=== PATIENT | female | born 1965 | race Caucasian/White ===

== ENCOUNTER 2022-12-18 20:06 | Inpatient (IN) | payer OTHER ==
[2022-12-18 20:37] VITALS: BMI 23.3
[2022-12-18] MEDS ORDERED: IBUPROFEN 400 MG TABLET (FP) PO PRN (21:10)
[2022-12-18] MEDS ORDERED: ACETAMINOPHEN 325 MG TABLET (FP) PO PRN (21:10)
[2022-12-18] MEDS ORDERED: NALOXONE HCL (KLOXXADO) 8 MG SPRAY NS PRN (21:10)
[2022-12-18] MEDS ORDERED: DICYCLOMINE HCL 10 MG CAPSULE PO PRN (21:10)
[2022-12-18] MEDS ORDERED: methaDONE HCL 10 MG TABLET (FOR DETOX USE ONLY) PO ONE (21:10)
[2022-12-18] MEDS ORDERED: guaiFENesin 600 MG TABLET.ER (FP) PO PRN (21:10)
[2022-12-18] MEDS ORDERED: ONDANSETRON *ODT* 4 MG TABLET SL PRN (21:10)
[2022-12-18] MEDS ORDERED: MAG HYDROX/AL HYDROX/SIMETH 30 ML UNIT-DOSE CUP PO PRN (21:10)
[2022-12-18] MEDS ORDERED: BENZONATATE 200 MG CAPSULE PO PRN (21:10)
[2022-12-18] MEDS ORDERED: cloNIDine HCL 0.1 MG TABLET PO PRN (21:10)
[2022-12-18] MEDS ORDERED: NALOXONE HCL 0.4 MG/ML VIAL IM PRN (21:10)
[2022-12-18] MEDS ORDERED: MAGNESIUM HYDROX 2400MG/30ML ORAL SUSPENSION 30 ML CUP PO PRN (21:10)
[2022-12-18] MEDS ORDERED: POLYETHYLENE GLYCOL (HEALTHYLAX) 3350 17 GM PACKET PO PRN (21:10)
[2022-12-18] MEDS ORDERED: LOPERAMIDE HCL 2 MG CAPSULE PO PRN (21:10)
[2022-12-18] MEDS ORDERED: BENZOCAINE/MENTHOL (CHLORASEPTIC ) LOZENGE MM PRN (21:10)
[2022-12-18] MEDS ORDERED: BISMUTH SUBSALICYLATE 524 MG/30 ML PO PRN (21:10)
[2022-12-18] MEDS ORDERED: MELATONIN 5 MG TABLETS PO SCH (22:00)
[2022-12-18] MEDS: THIAMINE HCL 100 MG TABLET (FP) PO SCH (22:15)
[2022-12-19] MEDS: PRENATAL VITAMINS W/ FOLIC ACID TABLET (FP) PO SCH (10:13)
[2022-12-19] MEDS: METHOCARBAMOL 500 MG TABLET PO PRN ×2 (10:13→22:21)
[2022-12-19 11:56] LABS: HEMATOCRIT 38.3 % (32.4-45.2); HEMOGLOBIN 12.8 GM/dL (10.7-15.3); MCHC 33.5 g/dl (32.0-36.0); MEAN CELL VOLUME 86.7 fl (80-96); MEAN PLT VOLUME 8.8 fl (7.5-11.1); PLATELET COUNT 249 10^3/uL (134-434); RBC 4.41 M/mm3 (3.60-5.2); WHITE BLOOD COUNT 5.4 K/mm3 (4.0-10.0)
[2022-12-19 12:11] LABS: POTASSIUM 4.8 mmol/L (3.5-5.1)
[2022-12-19 12:12] LABS: CALCIUM 9.6 mg/dL (8.5-10.1)
[2022-12-19 12:13] LABS: ALBUMIN 3.8 g/dl (3.4-5.0); BLOOD UREA NITROGEN 10.7 mg/dL (7-18)
[2022-12-19 12:16] LABS: CREATININE 0.9 mg/dL (0.55-1.3)
[2022-12-19 12:18] LABS: BILIRUBIN,TOTAL 0.5 mg/dL (0.2-1)
[2022-12-19] MEDS: THIAMINE HCL 100 MG TABLET (FP) PO SCH (22:20)
[2022-12-19] MEDS: MELATONIN 5 MG TABLETS PO SCH (22:20)
[2022-12-20] MEDS: METHOCARBAMOL 500 MG TABLET PO PRN ×2 (06:13→21:49)
[2022-12-20] MEDS ORDERED: methaDONE HCL 10 MG TABLET (FOR DETOX USE ONLY) PO ONE (10:00)
[2022-12-20] MEDS: PRENATAL VITAMINS W/ FOLIC ACID TABLET (FP) PO SCH (10:09)
[2022-12-20] MEDS: IBUPROFEN 600 MG TABLET (FP) PO PRN (14:19)
[2022-12-20] MEDS: hydrOXYzine PAMOATE 25 MG CAPSULE (FP) PO PRN (21:49)
[2022-12-20] MEDS: MELATONIN 5 MG TABLETS PO SCH (21:49)
[2022-12-20] MEDS: THIAMINE HCL 100 MG TABLET (FP) PO SCH (21:50)
[2022-12-21] MEDS: PRENATAL VITAMINS W/ FOLIC ACID TABLET (FP) PO SCH (09:44)
[2022-12-21] MEDS: METHOCARBAMOL 500 MG TABLET PO PRN ×2 (09:48→21:06)
[2022-12-21] MEDS ORDERED: METHYL SALICYLATE/MENTHOL OINT 30 GM TUBE TP PRN (12:39)
[2022-12-21] MEDS: MELATONIN 5 MG TABLETS PO SCH (21:03)
[2022-12-21] MEDS: THIAMINE HCL 100 MG TABLET (FP) PO SCH (21:04)
[2022-12-22] MEDS: IBUPROFEN 600 MG TABLET (FP) PO PRN (05:47)
[2022-12-22] MEDS: METHOCARBAMOL 500 MG TABLET PO PRN ×2 (05:47→22:12)
[2022-12-22] MEDS ORDERED: methaDONE HCL 10 MG TABLET (FOR DETOX USE ONLY) PO ONE (10:00)
[2022-12-22] MEDS: PRENATAL VITAMINS W/ FOLIC ACID TABLET (FP) PO SCH (10:01)
[2022-12-22 17:43] VITALS: RESP 18
[2022-12-22] MEDS: THIAMINE HCL 100 MG TABLET (FP) PO SCH (22:12)
[2022-12-22] MEDS: MELATONIN 5 MG TABLETS PO SCH (22:12)
[2022-12-23] MEDS: hydrOXYzine PAMOATE 25 MG CAPSULE (FP) PO PRN (02:40)
[2022-12-23] MEDS: METHOCARBAMOL 500 MG TABLET PO PRN (06:11)
[2022-12-23] MEDS: IBUPROFEN 600 MG TABLET (FP) PO PRN (06:12)
[2022-12-23 09:56] VITALS: BP 95/60; PULSE 86; TEMP 98.7
[2022-12-23] MEDS: PRENATAL VITAMINS W/ FOLIC ACID TABLET (FP) PO SCH (12:22)
== END 2022-12-23 09:35 | disposition home or self-care (01) | DRG 773 ==
LOC: YASAS 20:06 → Y3N 21:31
PROVIDERS: ADMIT Allergy & Immunology; ATTEND Surgery
PROC: HZ2ZZZZ Detoxification Services for Substance Abuse Treatment (ICD-10-PCS; principal; 2022-12-18)
DX: F11.23 Opioid dependence with withdrawal (principal); F17.210 Nicotine dependence, cigarettes, uncomplicated
CPT/HCPCS: 36415; 80053; 81025; 85027; 86780; 87635; 93005; 93010